=== PATIENT | female | born 1985 | race Caucasian/White ===

== ENCOUNTER 2020-01-16 09:52 | Outpatient (NON) | payer OTHER, SELFPAY ==
[2020-01-16 23:41] LABS: SARS-CoV-2 RNA PCR Negative
== END 2020-01-16 09:53 ==
PROVIDERS: Visit Provider Internal Medicine
DX: Z20.828 Contact with and (suspected) exposure to other viral communicable diseases (principal); R05 Cough; R51 Headache; J45.909 Unspecified asthma, uncomplicated
CPT/HCPCS: 87635; C9803; U0003

== ENCOUNTER 2020-03-28 15:18 | Emergency (ER) | payer OTHER, SELFPAY ==
--- NOTE | ~2020-03-28 | XR_ITS ---
XR elbow LT min 3V 03/28/2020 16:32 Indication: Left elbow pain Procedure: 4 views left elbow Comparison: No prior studies for comparison. Findings: There is a possible nondisplaced radial neck fracture. There is displacement of the ventral fat pad, consistent with effusion. No other fracture. Impression: 1: Possible nondisplaced radial neck fracture. Reviewed, dictated and finalized at location A. RACT GRAPHIC DESIGNER Impression: 1: Possible nondisplaced radial neck fracture.
--- NOTE | ~2020-03-28 | XR_ITS ---
XR elbow RT min 3V 03/28/2020 16:32 Indication: Right elbow pain Procedure: 3 views right elbow Comparison: No prior studies for comparison. Findings: There is a nondisplaced radial neck fracture. There is a joint effusion with displacement o f the ventral fat pad. No other fractures. Impression: 1: Nondisplaced radial neck fracture with joint effusion. Reviewed, dictated and finalized at location A. ACCOUNT MANAGER Impression: 1: Nondisplaced radial neck fracture with joint effusion.
--- NOTE | ~2020-03-28 | XR_ITS ---
XR wrist RT min 3V 03/28/2020 16:32 INDICATION: Right wrist pain PROCEDURE: 4 views right wrist COMPARISON: No prior studies for comparison. FINDINGS: Fracture, dislocation or subluxation is not identified. There is debris in the soft tissues overlying the base of the first metacarpal on the lateral view. The soft tissues appear within babar l limits. No foreign bodies are identified. IMPRESSION: 1: NO ACUTE BONE OR JOINT ABNORMALITY IDENTIFIED. Reviewed, dictated and finalized at location A. SCORER
[2020-03-28 15:48] VITALS: BP 110/82; PULSE 80; RESP 18; TEMP 36.2; O2SAT 100
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
[2020-03-28] MEDS: IBUPROFEN 600 MG TABLET PO (16:23)
[2020-03-28] MEDS: HYDROcodone/acetaminophen (*CRX) 5-325 MG TABLET 1 TAB PO (17:37)
[2020-03-28 18:30] VITALS: BP 115/89; PULSE 80; RESP 18; TEMP 36.4; O2SAT 99
[2020-03-28 19:05] VITALS: BP 118/73; PULSE 88; RESP 16; TEMP 36.4; O2SAT 100
== END 2020-03-28 19:20 | disposition home or self-care (01) ==
PROVIDERS: Emergency Provider General Practice; PCP Internal Medicine
DX: S52.135A Nondisplaced fracture of neck of left radius, initial encounter for closed fracture (principal); S52.134A Nondisplaced fracture of neck of right radius, initial encounter for closed fracture; S69.91XA Unspecified injury of right wrist, hand and finger(s), initial encounter; S60.511A Abrasion of right hand, initial encounter; V18.4XXA Pedal cycle driver injured in noncollision transport accident in traffic accident, initial encounter; Y93.55 Activity, bike riding
CPT/HCPCS: 29105; 29125; 73080; 73110; 99284; A4565; A9270

== ENCOUNTER 2021-03-29 02:34 | Day surgery (SDC) | payer OTHER, SELFPAY ==
[2021-03-25 12:28] VITALS: BMI 36.5
--- NOTE | 2021-03-29 12:23 | P.PNAN_ITS ---
Anes - Initial Pre Proc Eval Procedure: Operation Date: 03/29/21 13:30 Proposed Procedures p Colonoscopy - Luke Lee MD Date/Time: 03/29/21 12:23 Surgeon: Luke Lee MD Pre Op Diagnosis: diarrhea Patient Data Age: 35 Gender: F Height: 1.73 m Weight: 109 kg Allergies Allergy/AdvReac Type Severity Reaction Status Date / Time Sulfa (Sulfonamide Allergy Unknown Dyspnea / Verified 03/29/21 12:29 Antibiotics) SOB adhesive Allergy Blister Verified 03/29/21 12:29 Home Medications Medication Instructions Recorded Confirmed Type albuterol sulfate 2 puff INHALATION PRN PRN 03/28/20 03/25/21 History fluticasone furoate-vilanterol 1 inh INHALATION DAILY 03/28/20 03/25/21 History [Breo Ellipta] montelukast 10 mg PO DAILY 03/28/20 03/25/21 History minocycline 50 mg capsule 50 mg PO BID 03/23/21 03/25/21 History Patient hx anesthesia problems: none Family hx anesthesia problems: none Results Review: All pre-operative results and documents have been reviewed as part of the pre-operative evaluation. [facility] Past Medical History Medical History (Updated 03/29/21 @ 12:24 by Thien Scruggs MD) Asthma BMI 34.0-34.9,adult BMI over 35 COPD (chronic obstructive pulmonary disease) Fracture of radial neck Bilateral H/O blood clots PVC (premature ventricular contraction) Vascular disease Surgical History Surgical History H/O: section History of cholecystectomy History of ERCP Family History Family History (Updated 03/23/21 @ 14:32 by Sheeba De La Cruz MA) Mother Heart disease Hypertension Depression Father Malignant neoplasm of prostate Hypertension Heart disease Grandparent Malignant neoplasm of prostate Hypertension Heart disease Sibling Depression Social History Social History Smoking status: Never smoker Alcohol intake: current Alcohol use details: 1-2 PER YEAR Substance use: never Substance use type: does not use Living arrangements: with family Gender identity (if verbalized by the patient): Female Spiritual care concerns: No Anes - Eval Final PreProcedure Day of Procedure 03/29/21 12:23 Patient weight: obese Heart: regular rate and rhythm Lungs: clear to auscultation and normal air movement Airway: Mallampati scale class II Neurological: alert and oriented Last oral intake: >/= 8 hours ASA classification: III Emergent: no Anesthetic plan: proceed Anesthesia type and monitoring: general GIVS Results Review: All pre-operative results and documents have been reviewed as p art of the pre-operative evaluation. Informed Consent: The patient's anesthetic plan and its attendant risks and benefits were discussed with the patient/family/POA. Questions were solicited and answers provided to the satisfaction of the patient/family/POA.
[2021-03-29 12:32] VITALS: BP 112/72; PULSE 85; RESP 18; TEMP 36.1; O2SAT 100
[2021-03-29] MEDS: LACTATED RINGERS 1,000 ML 150 ML IV CONT (12:39)
--- NOTE | 2021-03-29 13:09 | WPDGICN ---
Assessment and Plan Assessment and plan (1) Diarrhea: Code(s): R19.7 - Diarrhea, unspecified Status: Acute Assessment and Plan: Patient with ongoing diarrhea. She patient presents for today for colonoscopy to evaluate more thoroughly. Differential diagnosis includes irritable bowel syndrome. Post cholecystectomy diarrhea. Versus other organic disease. Further recommendations will be given after endoscopy. GI Consult Note Consult date/time: 03/29/21 13:09 HPI: Macarena Lopez is a 35 year old female Presents for EGD. Patient has a history of diarrhea since having cholecystectomy several years ago. Seemed to worsen after several years ago over the last several months she has noticed 2-3 pudding like stools on a daily basis. On some days it may be up to 6 times a day. She states there is typically no warning for this. This has limited her ability to travel. She is unable to take her child to school in fact. Patient does notice occasional bleeding she attributes to a hemorrhoid. The bowel movement itself is not noted to be bloody. Patient has tried Imodium with no specific improvement except perhaps the day after taking Imodium. She briefly tried Metamucil. With no improvement of her symptoms. Recent stool studies were found to be unremarkable. Patient presents today for colonoscopy for additional investigation. 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 She was briefly felt to have biliary disease and was followed at [facility] but most recent follow-up feels that this is not the case. She no longer is followed at [facility] and has been discharged from their service. Review of Systems Review of Systems: All systems reviewed & are unremarkable except as noted in HPI and below [facility] Past Medical History Medical History (Updated 03/29/21 @ 13:12 by Luke Lee MD) Asthma BMI 34.0-34.9,adult BMI over 35 COPD (chronic obstructive pulmonary disease) Fracture of radial neck Bilateral H/O blood clots PVC (premature ventricular contraction) Vascular disease Surgical History Surgical History H/O: section History of cholecystectomy History of ERCP Family History Family History (Updated 03/23/21 @ 14:32 by Sheeba De La Cruz MA) Mother Heart disease Hypertension Depression Father Malignant neoplasm of prostate Hypertension Heart disease Grandparent Malignant neoplasm of prostate Hypertension Heart disease Sibling Depression Social History Social History Smoking status: Never smoker Alcohol intake: current Alcohol use details: 1-2 PER YEAR Substance use: never Substance use type: does not use Living arrangements: with family Gender identity (if verbalized by the patient): Female Spiritual care concerns: No Meds Home Medications and Allergies Home Medications Medication Instructions Recorded Confirmed Type albuterol sulfate 2 puff INHALATION PRN PRN 03/28/20 03/25/21 History fluticasone furoate-vilanterol 1 inh INHALATION DAILY 03/28/20 03/25/21 History [Breo Ellipta] montelukast 10 mg PO DAILY 03/28/20 03/25/21 History minocycline 50 mg capsule 50 mg PO BID 03/23/21 03/25/21 History Allergies Allergy/AdvReac Type Severity Reaction Status Date / Time Sulfa (Sulfonamide Allergy Unknown Dyspnea / Verified 03/29/21 12:29 Antibiotics) SOB adhesive Allergy Blister Verified 03/29/21 12:29 Vital Signs Vital Signs - 24 hr 03/29/21 12:32 Temperature 97 F L Pulse Rate 85 Respiratory Rate 18 Blood Pressure 112/72 Pulse Oximetry 100 Exam Narrative: Physical exam reveals patient to be alert. Vital signs stable. HEENT exam reveals no icterus. Lungs are clear to auscultation and percussion. Heart
[2021-03-29 13:43] VITALS: BP 96/63; PULSE 86; RESP 22; O2SAT 99
[2021-03-29 13:53] VITALS: BP 100/63; PULSE 80; RESP 22; O2SAT 100
[2021-03-29 14:02] VITALS: BP 108/71; PULSE 81; RESP 17; O2SAT 100
== END 2021-03-29 14:16 | disposition home or self-care (01) ==
PROVIDERS: PCP Internal Medicine; Visit Provider Internal Medicine Gastroenterology
PROC: 0DJD8ZZ Inspection of Lower Intestinal Tract, Via Natural or Artificial Opening Endoscopic (ICD-10-PCS; CPT 45378; principal; 2021-03-29 13:30)
DX: R19.7 Diarrhea, unspecified (principal); K51.00 Ulcerative (chronic) pancolitis without complications; Z90.49 Acquired absence of other specified parts of digestive tract; K62.89 Other specified diseases of anus and rectum; J45.909 Unspecified asthma, uncomplicated; J44.9 Chronic obstructive pulmonary disease, unspecified; I49.3 Ventricular premature depolarization; Z79.51 Long term (current) use of inhaled steroids; I99.9 Unspecified disorder of circulatory system; E66.9 Obesity, unspecified; Z68.36 Body mass index [BMI] 36.0-36.9, adult
CPT/HCPCS: 45380; 88305; J2704; J7120

== ENCOUNTER 2021-11-21 18:08 | Emergency (ER) | payer BC, SELFPAY ==
--- NOTE | ~2021-11-21 | XR_ITS ---
EXAM: XR sacrum coccyx min 2V DATE: 11/21/2021 18:50 HISTORY: fall DOWN STAIRS . COMPARISON: X-ray pelvis, same date. FINDINGS: Normal mineralization. No fracture or dislocation. No lytic or blastic lesion. Joint space s are maintained. No erosion or periosteal change. Soft tissues within normal limits. IMPRESSION: No acute osseous finding in the sacrum or coccyx. Reviewed, dictated and finalized at location K.
--- NOTE | ~2021-11-21 | XR_ITS ---
EXAM: XR elbow LT min 3V DATE: 11/21/2021 18:50 HISTORY: FALL DOWN STAIRS . COMPARISON: 04/06/2020. FINDINGS: Normal mineralization. Mild displacement of the anterior fat pad, with subtle linear defec t seen in the radial head, no other fracture or dislocation. No lytic or blastic lesion. Joint spaces are maintained. No erosion or periosteal change. Soft tissues within normal limits. IMPRESSION: Subtle nondisplaced radial head fracture is suspected. No other acute osseous finding in the right elbow. Reviewed, dictated and finalized at location K. IMPRESSION: Subtle nondisplaced radial head fracture is suspected. No other acu te osseous finding in the right elbow.
--- NOTE | ~2021-11-21 | XR_ITS ---
EXAM: XR pelvis 1-2V DATE: 11/21/2021 18:50 HISTORY: fall DOWN STAIRS . COMPARISON: None available. FINDINGS: Normal mineralization. No fracture or dislocation. No lytic or blastic lesion. Joint space s are maintained. No erosion or periosteal change. Soft tissues within normal limits. IMPRESSION: No acute osseous finding in the pelvis. Reviewed, dictated and finalized at location K.
--- NOTE | ~2021-11-21 | XR_ITS ---
EXAM: XR foot RT min 3V DATE: 11/21/2021 18:50 HISTORY: fall DOWN STAIRS . COMPARISON: None available. FINDINGS: Normal mineralization. No fracture or dislocation. No lytic or blastic lesion. Joint space s are maintained. No erosion or periosteal change. Soft tissues within normal limits. IMPRESSION: No acute osseous finding in the right foot. Reviewed, dictated and finalized at location K.
--- NOTE | ~2021-11-21 | CT_ITS ---
EXAMINATION: CT lumbar spine wo con DATE: 11/21/2021 19:53 INDICATION: fall . TECHNIQUE: Computed tomography (CT) of the lumbar spine was performed without intravenous contrast. A utomated exposure control and iterative reconstruction technique were employed. The dose-length produ ct was 1262.70 mGy-cm. COMPARISON: None. FINDINGS: 5 nonrib-bearing lumbar-type vertebral bodies. Pedicles intact. Normal vertebral body align ment. Vertebral body heights preserved. Disc spaces maintained. Normal facets and posterior elements. IMPRESSION: 1. No acute fracture or traumatic malalignment in the lumbar spine. Reviewed, dictated and finalized at location K.
[2021-11-21 18:15] VITALS: BP 125/87; PULSE 93; RESP 18; TEMP 36.8; O2SAT 100
[2021-11-21 18:17] VITALS: BP 128/80; PULSE 91; RESP 22; TEMP 36.7; O2SAT 100
[2021-11-21 19:03] VITALS: BP 118/87; PULSE 89; RESP 18; O2SAT 100
[2021-11-21] MEDS: HYDROcodone/acetaminophen (*CRX) 5-325 MG TABLET 1 TAB PO (19:03)
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
[2021-11-21 22:04] VITALS: BP 138/78; PULSE 76; RESP 18; O2SAT 99
== END 2021-11-21 22:09 | disposition home or self-care (01) ==
PROVIDERS: Emergency Provider Emergency Medicine; PCP Internal Medicine
DX: S30.0XXA Contusion of lower back and pelvis, initial encounter (principal); S90.31XA Contusion of right foot, initial encounter; S52.125A Nondisplaced fracture of head of left radius, initial encounter for closed fracture; J44.9 Chronic obstructive pulmonary disease, unspecified; W10.9XXA Fall (on) (from) unspecified stairs and steps, initial encounter
CPT/HCPCS: 72131; 72170; 72220; 73080; 73630; 81025; 99284; A4565; A9270

== ENCOUNTER → 2022-03-27 14:38 | Outpatient (CLI) | payer BC, SELFPAY ==
--- NOTE | ~2022-03-27 | XR_ITS ---
XR elbow LT min 3V DATE: 03/27/2022 14:55 INDICATION: Posterior left elbow pain for one week. No injury. TECHNIQUE: 4 views COMPARISON: None FINDINGS: No fracture or dislocation or joint effusion. No periosteal reaction or bone destruction. IMPRESSION: No significant abnormality Reviewed, dictated and finalized at location A. IMPRESSION: No significant abnormality
--- NOTE | ~2022-03-27 | XR_ITS ---
XR finger 1st LT min 2V DATE: 03/27/2022 14:56 INDICATION: Left distal thumb pain for one week. No injury. TECHNIQUE: 3 views COMPARISON: None FINDINGS: No fracture or dislocation, periosteal reaction or bone destruction, erosive change, radiop aque foreign body or subcutaneous emphysema. Joint spaces are preserved. IMPRESSION: Negative Reviewed, dictated and finalized at location A. IMPRESSION: Negative
== END ==
PROVIDERS: PCP Internal Medicine; Visit Provider Internal Medicine
DX: M25.522 Pain in left elbow (principal); M79.645 Pain in left finger(s)
CPT/HCPCS: 73080; 73140

== ENCOUNTER 2022-04-07 15:24 | Outpatient (CLI) | payer BC, SELFPAY ==
--- NOTE | ~2022-04-07 | US_ITS ---
US soft tissue UE LT DATE: 04/07/2022 16:01 INDICATION: Left thumb pain TECHNIQUE: Real-time and color flow imaging of the soft tissues of the thumb at area of complaint of pain along the palmar aspect COMPARISON: 03/27/2022 left first digit radiographs FINDINGS: No suspicious mass or fluid collection unusual vascularity is noted. IMPRESSION: No significant soft tissue abnormality is detected sonographically Reviewed, dictated and finalized at Location A. Reviewed, dictated and finalized at location A. KITCHEN MANAGER
== END 2022-04-07 15:25 | disposition home or self-care (01) ==
PROVIDERS: PCP Internal Medicine; Visit Provider Internal Medicine
DX: M79.645 Pain in left finger(s) (principal)
CPT/HCPCS: 76882

== ENCOUNTER 2022-07-03 01:10 | Day surgery (SDC) | payer BC, SELFPAY ==
[2022-06-15 12:20] VITALS: BMI 34.2
[2022-07-03 07:01] VITALS: BP 116/74; PULSE 84; RESP 18; TEMP 36.2; O2SAT 100
[2022-07-03] MEDS: LACTATED RINGERS 1,000 ML 150 ML IV CONT (07:03)
--- NOTE | 2022-07-03 07:19 | WPDANESEPPF ---
Anes - Initial Pre Proc Eval Procedure: Operation Date: 07/03/22 08:00 Proposed Procedures p Colonoscopy - Luke Lee MD Date/Time: 07/03/22 07:19 Surgeon: Luke Lee MD Pre Op Diagnosis: ulcerative colitis Patient Data Age: 36 Gender: F Height: 1.73 m Weight: 101.2 kg Last Vital Signs Temp 36.2 C L 07/03/22 07:01 Pulse 84 07/03/22 07:01 Resp 18 07/03/22 07:01 BP 116/74 07/03/22 07:01 Pulse Ox 100 07/03/22 07:01 O2 Del Method Room Air 07/03/22 07:01 Allergies Allergy/AdvReac Type Severity Reaction Status Date / Time adhesive Allergy Unknown Blister Verified 07/03/22 07:00 Sulfa (Sulfonamide Allergy Unknown Dyspnea / Verified 07/03/22 07:00 Antibiotics) SOB Home Medications Medication Instructions Recorded Confirmed Type albuterol sulfate 90 mcg/actuation 2 puff inhalation PRN PRN 03/28/20 06/15/22 History aerosol inhaler Shortness Of Breath Or Wheezing fluticasone furoate 200 1 inh inhalation DAILY 03/28/20 06/15/22 History mcg-vilanterol 25 mcg/dose inhalation powder (Breo Ellipta) montelukast 10 mg tablet 10 mg PO DAILY 03/28/20 06/15/22 History minocycline 50 mg capsule 50 mg PO BID 03/23/21 06/15/22 History norethindrone 1.5 mg-ethinyl 1 tablet PO DAILY 10/03/21 06/15/22 History estradiol 30 mcg(21)/iron 75 mg(7) tablet (Junel FE 1.5/30 (28)) semaglutide 0.25 mg or 0.5 mg (2 0.5 mg subcut WEEKLY 01/04/22 06/15/22 History mg/1.5 mL) subcutaneous pen injector (Ozempic) dicyclomine 20 mg tablet 20 mg PO TID PRN cramping #90 tabs 05/02/22 06/15/22 Rx mesalamine 1.2 gram tablet,delayed 4.8 g PO DAILY #120 tabs 06/05/22 06/15/22 Rx release (Lialda) Patient hx anesthesia problems: none Family hx anesthesia problems: none Results Review: All pre-operative results and documents have been reviewed as part of the pre-operative evaluation. [facility] Past Medical History Medical History Asthma BMI 34.0-34.9,adult BMI over 35 COPD (chronic obstructive pulmonary disease) Fracture of radial neck Bilateral H/O blood clots PVC (premature ventricular contraction) Ulcerative colitis Vascular disease Surgical History Surgical History H/O: section History of cholecystectomy History of ERCP Family History Family History Mother Heart disease Hypertension Depression Father Malignant neoplasm of prostate Hypertension Heart disease Grandparent Malignant neoplasm of prostate Hypertension Heart disease Sibling Depression Social History Social History Smoking status: Never smoker Alcohol intake: current Alcohol use details: special occasions Substance use: never Substance use type: does not use Living arrangements: with family Gender identity (if verbalized by the patient): Female Spiritual care concerns: No Anes - Eval Final PreProcedure Day of Procedure 07/03/22 07:19 Patient weight: obese Heart: regular rate and rhythm Lungs: clear to auscultation Airway: Mallampati scale class II Neurological: alert and oriented Last oral intake: >/= 8 hours ASA classification: II Emergent: no Anesthetic plan: proceed Anesthesia type and monitoring: general GIVS and standard monitoring Results Review: All pre-operative results and documents have been reviewed as part of the pre-operative evaluation. Informed Consent: The patient's anesthetic plan and its attendant risks and benefits were discussed with the patient/family/POA. Questions were solicited and answers provided to the satisfaction of the patient/family/POA.
--- NOTE | 2022-07-03 07:24 | PM.HPGS ---
History of Present Illness History of Present Illness Consent: Risks, benefits, and alternatives have been discussed and questions answered. Patient agrees to proceed with procedure. Chief complaint: ulcerative colitis Narrative: Macarena Lopez is a 36 year old female For with a history of ulcerative colitis diagnosed in 1 year ago. Patient has done well being placed on Lialda. She does intermittently no resists episodes of urgent diarrhea and cramping. She has occasional bright red blood per rectum with wiping attributed to hemorrhoids. Because of intermittent symptoms fecal calprotectin was obtained found to be normal. Patient is referred back for follow-up colonoscopy to assess status and response to therapy for of her ulcerative colitis. Family history is noncontributory. Review of Systems Review of Systems: Review of systems noncontributory. [facility] Past Medical History Medical History Asthma BMI 34.0-34.9,adult BMI over 35 COPD (chronic obstructive pulmonary disease) Fracture of radial neck Bilateral H/O blood clots PVC (premature ventricular contraction) Ulcerative colitis Vascular disease Surgical History Surgical History H/O: section History of cholecystectomy History of ERCP Family History Family History Mother Heart disease Hypertension Depression Father Malignant neoplasm of prostate Hypertension Heart disease Grandparent Malignant neoplasm of prostate Hypertension Heart disease Sibling Depression Social History Social History Smoking status: Never smoker Alcohol intake: current Alcohol use details: special occasions Substance use: never Substance use type: does not use Living arrangements: with family Gender identity (if verbalized by the patient): Female Spiritual care concerns: No Meds Home Medications and Allergies Home Medications Medication Instructions Recorded Confirmed Type albuterol sulfate 90 mcg/actuation 2 puff inhalation PRN PRN 03/28/20 06/15/22 History aerosol inhaler Shortness Of Breath Or Wheezing fluticasone furoate 200 1 inh inhalation DAILY 03/28/20 06/15/22 History mcg-vilanterol 25 mcg/dose inhalation powder (Breo Ellipta) montelukast 10 mg tablet 10 mg PO DAILY 03/28/20 06/15/22 History minocycline 50 mg capsule 50 mg PO BID 03/23/21 06/15/22 History norethindrone 1.5 mg-ethinyl 1 tablet PO DAILY 10/03/21 06/15/22 History estradiol 30 mcg(21)/iron 75 mg(7) tablet (Junel FE .10/24 (28)) semaglutide 0.25 mg or 0.5 mg (2 0.5 mg subcut WEEKLY 01/04/22 06/15/22 History mg/1.5 mL) subcutaneous pen injector (Ozempic) dicyclomine 20 mg tablet 20 mg PO TID PRN cramping #90 tabs 05/02/22 06/15/22 Rx mesalamine 1.2 gram tablet,delayed 4.8 g PO DAILY #120 tabs 06/05/22 06/15/22 Rx release (Lialda) Allergies Allergy/AdvReac Type Severity Reaction Status Date / Time adhesive Allergy Unknown Blister Verified 07/03/22 07:00 Sulfa (Sulfonamide Allergy Unknown Dyspnea / Verified 07/03/22 07:00 Antibiotics) SOB Vital Signs Vital Signs - 24 hr 07/03/22 07:01 Temperature 97.1 F L Pulse Rate 84 Respiratory Rate 18 Blood Pressure 116/74 Pulse Oximetry 100 Oxygen Delivery Room Air Exam Narrative: Physical exam reveals patient to be alert. Vital signs stable. HEENT exam is unremarkable. Patient is anicteric. Lungs are clear to auscultation and percussion. Heart is without murmur or extra sounds. Abdomen bowel sounds are present soft nontender with no organomegaly. Digital external rectal exam is normal. Assessment and Plan Assessment and plan (1) Ulcerative colitis: Code(s): K51.90 - Ulcerative colitis, unspecified, without complications Status: Acut
[2022-07-03 08:23] VITALS: BP 97/62; PULSE 79; RESP 16; O2SAT 98
[2022-07-03 08:33] VITALS: BP 103/69; PULSE 72; RESP 14; O2SAT 100
[2022-07-03 08:43] VITALS: BP 105/73; PULSE 83; RESP 20; O2SAT 100
== END 2022-07-03 08:56 | disposition home or self-care (01) ==
PROVIDERS: PCP Internal Medicine; Visit Provider Internal Medicine Gastroenterology
PROC: 0DJD8ZZ Inspection of Lower Intestinal Tract, Via Natural or Artificial Opening Endoscopic (ICD-10-PCS; CPT 45378; principal; 2022-07-03 08:00)
DX: K51.90 Ulcerative colitis, unspecified, without complications (principal); K64.8 Other hemorrhoids; J44.9 Chronic obstructive pulmonary disease, unspecified; Z79.51 Long term (current) use of inhaled steroids; Z79.899 Other long term (current) drug therapy; E66.9 Obesity, unspecified; Z68.33 Body mass index [BMI] 33.0-33.9, adult
CPT/HCPCS: 45380; 88305; J2704; J7120

== ENCOUNTER 2022-07-19 07:20 | Outpatient (CLI) | payer BC, SELFPAY ==
--- NOTE | ~2022-07-19 | MR_ITS ---
EXAMINATION: MR MRCP wo/w con/w 3D wo ind DATE: 07/19/2022 08:45 INDICATION: IgG4 related sclerosing cholangitis. TECHNIQUE: Magnetic resonance imaging (MRI) of the abdomen was performed without and with 20 mL Multi quique intravenous contrast. Sequences included coronal T2-weighted SS-FSE, coronal T2-weighted FS SS- FSE, coronal T2-weighted FS FIESTA, axial T2-weighted FS FIESTA, axial T2-weighted FIESTA, sagittal T 2-weighted SS-FSE, axial T1-weighted dual-echo FSPGR, axial T2-weighted SS-FSE, axial T1-weighted LAV A, axial T2-weighted STIR FSE. Thick-slab T2-weighted FRFSE-XL images were obtained for magnetic reso nance cholangiopancreatography (MRCP). Rotating maximum intensity projection 3-D reconstructions of t he volumetric data were created by the technologist. Postcontrast sequences included a time course of axial T1-weighted LAVA. COMPARISON: None. FINDINGS: ABDOMEN MRI: Heart size is normal. No pericardial or pleural effusion. Gallbladder is nonvisualized, likely surgical absent with secondary dilation of the cystic duct. 4 mm T2 hyperintense nonenhancing cyst in the right hepatic lobe. Liver is otherwise unremarkable. Pancreas, spleen, bilateral adrenal glands and kidneys are normal. Visualized portion of the bowels are unremarkable with no dilation to suggest obstruction. Small widemouthed fat-containing umbilical hernia. No pathologically enlarged ab dominal lymphadenopathy. Bones are unremarkable with normal marrow signal throughout. ABDOMEN MRCP: Common bile duct is normal in caliber measuring up to 4 mm maximal diameter. No filling defects or ob structing masses. There is normal caliber to the main pancreatic duct. No intrahepatic biliary ductal dilation. IMPRESSION: 1. Absent gallbladder and dilated cystic duct consistent with prior cholecystectomy. No other intra o r extra hepatic biliary ductal dilation. Reviewed, dictated and finalized at location A. 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 Absent gallbladder and dilated cystic duct consistent with prior cholecystec ai. No other intra or extra hepatic biliary ductal dilation.
== END 2022-07-19 07:21 | disposition home or self-care (01) ==
LOC: ANHIMG 07:21
PROVIDERS: PCP Internal Medicine; Visit Provider Nurse Practitioner Family
DX: K83.09 Other cholangitis (principal)
CPT/HCPCS: 74183; 76376; A9577

== ENCOUNTER → 2022-08-08 10:14 | Outpatient (CLI) | payer BC, SELFPAY ==
--- NOTE | ~2022-08-08 | US_ITS ---
EXAMINATION: US soft tissue head and neck DATE: 08/08/2022 10:32 INDICATION: Left neck mass. TECHNIQUE: Multiple grayscale and Doppler ultrasound images of the neck were obtained. COMPARISON: None FINDINGS: There are normal lymph nodes in the patient's area of concern in left neck. IMPRESSION: 1. No abnormal mass or lymphadenopathy. Reviewed, dictated and finalized at location A.
== END ==
PROVIDERS: PCP Internal Medicine; Visit Provider Internal Medicine
DX: R59.1 Generalized enlarged lymph nodes (principal)
CPT/HCPCS: 76536

== ENCOUNTER 2023-07-05 12:45 | Outpatient (CLI) | payer BC, SELFPAY ==
--- NOTE | ~2023-07-05 | CT_ITS ---
CT of the Abdomen and Pelvis: Indication: Abdominal pain Technique: 2.5 mm axial scans were obtained through the abdomen and pelvis following intravenous adm inistration of 100 cc of Omnipaque 350. Dose reduction technique was used on this scan by utilizing a utomated exposure control and iterative reconstruction technique. The dose-length product (DLP) was 4 61.03 mGy-cm. Findings: Scans through the lung bases are unremarkable. The liver, spleen, pancreas, adrenals and kidneys are within normal limits. Cholecystectomy clips are present. No evidence of aortic aneurysm. No lymphadenopathy. No bowel obstruction or bowel wall thickening. There is no evidence to suggest acute appendicitis. Images through the pelvis were performed. Urinary bladder unremarkable. No pelvic mass seen. No ascit es. Impression: No significant abnormalities seen. Reviewed, dictated and finalized at [facility]. ON STENCILER Impression: No significant abnormalities seen.
== END 2023-07-05 12:46 | disposition home or self-care (01) ==
PROVIDERS: PCP Internal Medicine; Visit Provider Nurse Practitioner Family
DX: R10.13 Epigastric pain (principal)
CPT/HCPCS: 74177; Q9967

== ENCOUNTER 2024-07-14 08:30 | Emergency (ER) | payer OTHER, SELFPAY ==
--- NOTE | 2024-07-14 08:33 | ED.URI ---
HPI - URI/Sore Throat General Chief Complaint: Upper Respiratory Infection Stated Complaint: Sore Throat Time Seen by Provider: 07/14/24 08:33 Source: patient Mode of arrival: ambulatory Limitations: no limitations History of Present Illness HPI Narrative: Macarena is a 38-year-old female patient presenting to the clinic today with complaints of a sore throat and nasal congestion x3 days. She reports she has felt feverish at times but is not checked her temperature. Denies any body aches, chills, chest pain, or shortness of breath. Feels as though there is a lot of drainage going in the back of her throat. MD elicited complaint: sore throat and nasal congestion Related Data Home Medications ?Medication ?Instructions ?Recorded ?Confirmed ?Last Taken ?Type albuterol sulfate 90 mcg/actuation 2 puff inhalation PRN PRN 03/28/20 01/02/24 07/02/22 History aerosol inhaler Shortness Of Breath Or Wheezing montelukast 10 mg tablet 10 mg PO DAILY 03/28/20 01/02/24 07/02/22 History budesonide-formoterol HFA 80 inhalation 07/14/24 Unknown History mcg-4.5 mcg/actuation aerosol inhaler bupropion HCl 150 mg 24 hr tablet, mg PO 07/14/24 Unknown History extended release semaglutide 1 mg/dose (4 mg/3 mL) mg subcut 07/14/24 Unknown History subcutaneous pen injector (Ozempic) spironolactone 100 mg tablet mg 07/14/24 Unknown History Allergies Allergy/AdvReac Type Severity Reaction Status Date / Time adhesive Allergy Unknown Blister Verified 07/14/24 08:37 Sulfa (Sulfonamide Allergy Unknown Dyspnea / Verified 07/14/24 08:37 Antibiotics) SOB Review of Systems Review of Systems: Pertinent positives per HPI. Patient denies any rash, headache, visual changes, dizziness, shortness of breath, chest pain, palpitations, nausea, vomiting, diarrhea, constipation, abdominal pain, or any urinary issues. [facility] Past Medical History Medical History Lower abdominal pain Ulcerative colitis PVC (premature ventricular contraction) Asthma BMI 34.0-34.9,adult Vascular disease COPD (chronic obstructive pulmonary disease) H/O blood clots BMI over 35 Fracture of radial neck Bilateral Surgical History Surgical History H/O: section History of ERCP History of cholecystectomy Family History Family History Mother Heart disease Hypertension Depression Father Malignant neoplasm of prostate Hypertension Heart disease Grandparent Malignant neoplasm of prostate Hypertension Heart disease Sibling Depression Social History Social History Smoking status: Never smoker Alcohol intake: current Alcohol use details: special occasions Substance use: never Substance use type: does not use Living arrangements: with family Gender identity (if verbalized by the patient): Female Spiritual care concerns: No Comments At the time of my signature, I reviewed and agree with the nursing past medical, surgical, social, and family history. There is no relevant family history pertinent to the patient complaint. Exam Narrative: General: Well-developed, well nourished, in no apparent distress Head: Normocephalic, atraumatic Eyes: Pupils equally round and reactive to light bilaterally, EOM intact, sclera and conjunctive clear, no discharge, lids normal Ears: TMs intact and clear, ear canals clear, no drainage, grossly hearing normal. Nose: Nares patent, clear discharge, no inflammation, no sinus tenderness. Mouth: Oral pharynx red without lesions or masses, good dentition, MMM. Postnasal drip Neck: Supple, trachea midline, no enlargement of anterior or posterior cervical nodes, no thyroid masses or goiter palpable. Cardio: Regular rate and rhythm, s1 and s2 normal, no murmur appreciated. Resp: Clear to auscultation bilaterally, no rhonchi, rales, wheezing or rubs Course Course Emergency Course: Portions of this record may have been created with voice recognition software. Level of Care: Express Care Visit Vital Signs Vital signs: Vital Signs Temperature 36.7 C 07/14/24 08:37 Pulse Rate 78 07/14/24 08:37 Respiratory Rate 16 07/14/24 08:37 Blood Pressure 96/67 L 07/14/24 08:37 Pulse Oximetry 100 07/14/24 08:37 Oxygen Delivery Room Air 07/14/24 08:37 Temperature 36.7 C 07/14/24 08:37 Pulse Rate 78 07/14/24 08:37 Respiratory Rate 16 07/14/24 08:37 Blood Pressure 96/67 L 07/14/24 08:37 Pulse Oximetry 100 07/14/24 08:37 Oxygen Delivery Room Air 07/14/24 08:37 Vital signs reviewed MDM - URI/Sore Throat MDM Narrative Medical decision making narrative: At the time of visit patient is resting comfortably on the exam table. Patient appears to be nontoxic. Labs: Strep test and influenza test was performed. All testing was negative. We will send strep for culture. Plan: I suspect patient has URI/postnasal drip/pharyngitis. Supportive measures were discussed with the patient and they voiced understanding discharge instructions and agrees to treatment plan. Return precautions reviewed Differential Diagnosis Differential diagnosis: Likely upper respiratory infection, otitis media, sinusitis, viral infection, bronchitis, influenza, pharyngitis and other (COVID) Discharge Plan Discharge Clinical Impression: Post-nasal drip Upper respiratory infection Qualifiers: URI type: unspecified URI Qualified Code(s): J06.9 - Acute upper respiratory infection, unspecified Pharyngitis Qualifiers: Pharyngitis/tonsillitis etiology: unspecified etiology Qualified Code(s): J02.9 - Acute pharyngitis, unspecified Patient Disposition: Home, Self-Care Condition: Stable Instructions: Antibiotic Form, Pharyngitis (ED), Cold Symptoms (ED), Postnasal Drip (DC) Additional Instructions: Influenza and strep testing were negative in the clinic today. We will send strep for culture if this comes back positive we will contact you in place you on antibiotics at that time. Take prescription medications only as prescribed-prednisone Increase fluids and stay well hydrated Tylenol/motrin for pain/fever Flonase and OTC antihistamines as directed Vicks vapor rub to open sinuses Sinus rinses for congestion Cepacol spray, cough drops, throat lozenges, warm tea with honey/lemon, gargle salt water to soothe throat BRAT diet for diarrhea Clear liquids x 24 hours then advance as tolerated for nausea/vomiting Go to the ED if you develop a worsening in your condition- high fever not controlled by Tylenol or Motrin, dehydration, weakness, lethargy, shortness of breath, or chest pain. Follow up with your PCP in 3-5 days if symptoms persist. Patient Language: Albanian Prescriptions: New prednisone 20 mg tablet 40 mg PO DAILY 5 Days Qty: 10 0RF No Action spironolactone 100 mg tablet bupropion HCl 150 mg tablet extended release 24 hr PO budesonide-formoterol 80-4.5 mcg/actuation HFA aerosol inhaler INHALATION Ozempic 1 mg/dose (4 mg/3 mL) pen injector SUBCUT hyoscyamine sulfate 0.375 mg tablet extended release 12 hr 0.375 mg PO Q12H PRN (Reason: abdominal discomfort) Qty: 60 2RF montelukast 10 mg tablet 10 mg PO DAILY albuterol sulfate 90 mcg/actuation HFA aerosol inhaler 2 puff INHALATION PRN PRN (Reason: Shortness Of Breath Or Wheezing) mesalamine 1.2 gram tablet,delayed release (DR/EC) See Rx Instructions .ROUTE .COMPLEX Qty: 120 3RF Dose Instruction: TAKE 4 TABLETS BY MOUTH DAILY Rx Instructions: TAKE 4 TABLETS BY MOUTH DAILY Follow-up/Referrals: PHYSICIAN,MECHANICAL TECHNICIAN [Primary Care Provider] - Stand Alone Forms: Work/School Release IP Time of Disposition: 08:58 Quality NIHSS Nursing Documentation ED NIHSS nursing documentation: reviewed/agree
[2024-07-14 08:37] VITALS: BP 96/67; PULSE 78; RESP 16; TEMP 36.7; O2SAT 100
[2024-07-14 13:36] LABS: EDINFLUASCREEN Negative (Negative); EDINFLUBSCREEN Negative (Negative)
[2024-07-14 13:36] LABS: EDSTREPNEGPOS1 Negative (Negative)
== END 2024-07-14 09:01 | disposition home or self-care (01) ==
PROVIDERS: Emergency Provider Nurse Practitioner Family
DX: R09.82 Postnasal drip (principal); J06.9 Acute upper respiratory infection, unspecified; J02.9 Acute pharyngitis, unspecified; J44.9 Chronic obstructive pulmonary disease, unspecified
CPT/HCPCS: 87081; 87804; 87880; 99213; G0463